=== PATIENT | male | born 1985 | race Caucasian/White ===

== ENCOUNTER 2017-08-18 08:17 | Emergency (ER) | payer SELFPAY ==
[~2017-08-18] VITALS: Ht 172.7 cm; Wt 103.0 kg
[~2017-08-18 08:17] MED LIST: XAN25 PO
[2017-08-18 09:22] LABS: BASOPHIL % 0.5 % (0-2); PLATELET COUNT 223 x10^3mcL (130-400); RED CELL DISTRIBUTION WIDTH 12.8 % (11.5-14.5)
[2017-08-18 09:35] LABS: CALCIUM 9.6 mg/dL (8.5-10.1); CARBON DIOXIDE 26.9 mmol/L (21-32); CHLORIDE SERUM 95 mmol/L (98-107); CREATININE SERUM 1.1 mg/dL (0.7-1.3); GFR1 > 60 mL/min; GLUCOSE SERUM 118 mg/dL (74-106); POTASSIUM SERUM 3.8 mmol/L (3.5-5.1); SODIUM SERUM 133 mmol/L (136-145)
[2017-08-18 09:40] LABS: ALBUMIN 3.6 g/dL (3.4-5.0); ALKALINE PHOSPHATASE 64 U/L (46-116); ALT/SGPT 39 U/L (16-63); AST/SGOT 26 U/L (15-37); BILIRUBIN TOTAL 0.89 mg/dL (0.20-1.00); CHOLESTEROL 200 mg/dL (<200)
[2017-08-18 09:42] LABS: HDL CHOLESTEROL 33 mg/dL (40-60); TOTAL PROTEIN, SERUM 9.1 g/dL (6.4-8.2)
[2017-08-18 09:56] LABS: UA SPECIFIC GRAVITY <=1.005 (1.005-1.035); microscopic required? YES; urine erythrocyte TRACE (NEGATIVE)
[2017-08-18 12:28] VITALS: BP 154/79
== END 2017-08-18 12:28 | disposition home or self-care (01) ==
LOC: ED 08:17
PROVIDERS: Emergency Medicine
DX: R10.32 Left lower quadrant pain (principal); J11.1 Influenza due to unidentified influenza virus with other respiratory manifestations; I10 Essential (primary) hypertension
CPT/HCPCS: 83880; J1885; J7030; Q0092